=== PATIENT | male | born 1985 | race Caucasian/White ===

== ENCOUNTER 2023-06-30 11:18 | Emergency (ER) | payer BC, OTHER ==
[~2023-06-30] VITALS: Ht 195.6 cm; Wt 77.1 kg
[2023-06-30 11:45] LABS: BASOPHILS % (AUTO) 0.5 % (0.0-2.0); EOSINOPHILS # (AUTO) 0.3 K/uL (0.0-0.7); EOSINOPHILS % (AUTO) 4.3 % (0.0-6.0); HEMATOCRIT 46 % (39-51); HEMOGLOBIN 16.2 g/dL (13.5-17.5); LYMPHOCYTES # (AUTO) 1.2 K/uL (0.8-4.8); LYMPHOCYTES % (AUTO) 18.9 % (20.0-44.0); MEAN CORPUSCULAR HEMOGLOBIN 34 PG (26.0-33.0); MEAN CORPUSCULAR HGB CONC 35 g/dl (31.0-36.0); MEAN CORPUSCULAR VOLUME 96 fL (80-96); MONOCYTES # (AUTO) 0.5 K/uL (0.1-1.30); MONOCYTES % (AUTO) 7.7 % (2.0-12.0); NEUTROPHILS # (AUTO) 4.3 K/uL (1.8-8.9); NEUTROPHILS % (AUTO) 68.6 % (43.0-81.0); PLATELET COUNT (AUTO) 174 K/uL (150-450); RED CELL DISTRIBUTION WIDTH 13.1 % (11.5-15.0); WHITE BLOOD COUNT (AUTO) 6.2 K/uL (4.3-11.0)
[2023-06-30 11:57] LABS: CALCIUM, SERUM 9.2 mg/dL (8.5-10.1); CARBON DIOXIDE 27 mmol/L (21-32); CHLORIDE 104 mmol/L (98-107); CREATININE 1.1 mg/dL (0.6-1.3); GLUCOSE 116 mg/dL (74-106); POTASSIUM 3.6 mmol/L (3.5-5.1); SODIUM SERUM 142 mmol/L (136-145); UREA NITROGEN, BLOOD 13 mg/dL (7-18)
[2023-06-30] MEDS ORDERED: CYCL5TAB PO (13:11)
[2023-06-30] MEDS ORDERED: IBUP-1955 PO (13:11)
[2023-06-30] MEDS ORDERED: KETOROLAC TROMETHAMINE 15 MG/ML VIAL ONE (13:22)
[2023-06-30] MEDS ORDERED: KETOROLAC TROMETHAMINE INJ 30 MG/ML VIAL IV ONE (13:30)
[2023-06-30 13:43] VITALS: BP 120/89; TEMP 98; O2SAT 99
== END 2023-06-30 13:44 | disposition home or self-care (01) ==
LOC: ER 11:18
DX: R07.89 Other chest pain (principal)
CPT/HCPCS: 99285; 96374; 71250; 93005 ×2; 76604; 85025; 80048; 36415; 84484; J1885